=== PATIENT | male | born 1960 | race Caucasian/White ===

== ENCOUNTER 2019-02-09 15:43 | Outpatient (CLI) | payer OTHER ==
[2019-02-09] MEDS ORDERED: OMEG1CAP23 PO (16:11)
[2019-02-09] MEDS ORDERED: CHOL200052 PO (16:11)
[2019-02-09] MEDS ORDERED: LORA10CA PO (16:11)
== END 2019-02-09 23:59 | disposition home or self-care (01) ==
LOC: STAR 15:43
PROVIDERS: ATTEND Surgery
DX: Z01.810 Encounter for preprocedural cardiovascular examination (principal)
CPT/HCPCS: 93005

== ENCOUNTER 2019-02-17 07:10 | Day surgery (SDC) | payer OTHER ==
[~2019-02-17] VITALS: Ht 175.3 cm; Wt 88.5 kg
[~2019-02-17 07:10] MED LIST: BUPIVACAINE/PF 0.5% ONE; CHOL200052 PO; LORA10CA PO; OMEG1CAP23 PO
[2019-02-17] MEDS ORDERED: LACTATED RINGERS 1,000 ML IV SCH (07:34)
[2019-02-17] MEDS ORDERED: FENTANYL PF 250 MCG/5ML ONE (09:06)
[2019-02-17] MEDS ORDERED: MIDAZOLAM 1 MG/ML, 2ML ONE (09:06)
[2019-02-17] MEDS ORDERED: LIDOCAINE-MPF 2% ,5ML ONE (09:16)
[2019-02-17] MEDS ORDERED: FENTANYL PF 100 MCG/2ML IV PRN (09:30)
[2019-02-17] MEDS ORDERED: PROMETHAZINE 25 MG SUPP PR PRN (09:30)
[2019-02-17] MEDS ORDERED: ONDANSETRON ODT 8 MG PO PRN (09:30)
[2019-02-17] MEDS ORDERED: HYDROmorphone 2 MG/ML, 1ML IVPush PRN (09:30)
[2019-02-17] MEDS ORDERED: OXYcodone 5 MG/5 ML ORAL.SOL UDC PO PRN (09:30)
[2019-02-17] MEDS ORDERED: PROMETHAZINE 25 MG/ML, 1ML IV PRN (09:30)
[2019-02-17] MEDS ORDERED: ONDANSETRON 2MG/ML, 2ML IV PRN (09:30)
[2019-02-17] MEDS ORDERED: ACETAMINOPHEN 325 MG TABLET PO PRN (09:30)
[2019-02-17] MEDS ORDERED: MEPERIDINE/PF 25MG/0.5ML IVPush PRN (09:30)
[2019-02-17] MEDS ORDERED: GLYCOPYRROLATE 0.2MG/1ML, 5ML ONE (09:45)
[2019-02-17] MEDS ORDERED: PROPOFOL 10 MG/ML, 20ML ONE (09:45)
[2019-02-17] MEDS ORDERED: CEFAZOLIN 1,000 MG ONE (09:45)
[2019-02-17] MEDS ORDERED: SUCCINYLCHOLINE 20 MG/ML, 10ML ONE (09:45)
[2019-02-17] MEDS ORDERED: ONDANSETRON 2MG/ML, 2ML ONE (09:45)
[2019-02-17] MEDS ORDERED: ROCURONIUM 10MG/ML,5ML ONE (09:45)
[2019-02-17] MEDS ORDERED: NEOSTIGMINE 1 MG/ML, 10ML ONE (09:45)
[2019-02-17] MEDS ORDERED: DEXAMETHASONE 4 MG/ML, 1ML ONE (09:45)
== END 2019-02-17 11:50 | disposition home or self-care (01) ==
LOC: OUT 07:10
PROVIDERS: ATTEND Surgery
DX: R22.1 Localized swelling, mass and lump, neck (principal); E78.00 Pure hypercholesterolemia, unspecified; Z98.890 Other specified postprocedural states; Z91.048 Other nonmedicinal substance allergy status; Z72.89 Other problems related to lifestyle
CPT/HCPCS: 21552; 88305; J0330; J0690; J1100; J2250; J2405; J2704; J2710; J3010; J7120